=== PATIENT | female | born 1965 | race Caucasian/White ===

== ENCOUNTER → 2019-04-14 | Outpatient (CLI) | payer OTHER, SELFPAY ==
[2019-04-14 16:21] LABS: Body Fluid Mononuclear WBC % 15.5 %; Body Fluid Polynuclear WBC # 3.611 10^3/uL; Body Fluid Polynuclear WBC % 84.5 %
[2019-04-14 16:27] LABS: Absolute Lymphocyte Count 1.55 X10^3/uL (0.83-4.51); Absolute Neutrophil Count 6.2 X10^3/uL (2.0-7.7); Basophil# 0.03 X10^3/uL; Basophil% 0.3 % (0-1); Eosinophil# 0.05 X10^3/uL; Eosinophils% 0.6 % (0-5); Hematocrit 43.9 % (37-47); Hemoglobin 14.4 g/dL (12.0-15.0); Lymphocyte # 1.55 X10^3/ul (4.0); Lymphocyte % 17.1 % (19-41); Mean Corp Hgb Conc 32.8 g/dL (32-36); Mean Corpuscular Hgb 31.1 pg (27.0-32.0); Mean Corpuscular Volume 94.8 fL (81-99); Monocyte# 1.23 X10^3/uL; Monocyte% 13.6 % (0-10); NRBC Flagged by Analyzer 0 % (0-5); Neutrophil # 6.16 X10^3/uL (2.7-7.7); Neutrophil % 68.1 % (47-70); Platelet Count 260 K/mm3 (150-450); RBC Distribution Width SD 44.9 fl (35.1-43.9); Red Blood Count 4.63 M/mm3 (4.2-5.4); White Blood Count 9.1 K/mm3 (4.4-11.0)
[2019-04-14 16:35] LABS: Erythrocyte Sedimentation Rate 22 mm/hr (0-30)
[2019-04-14 16:53] LABS: Red Cell Count/Body Fluid 0.003 10^6/ul
[2019-04-14 17:42] LABS: Auto B Fluid Analyzer BKGD Ct COUNTS W/IN LIMITS (W/IN LIMITS)
[2019-04-14 17:43] LABS: Appearance/Body Fluid CLOUDY; Body Fluid QC Type(s) BF4Q; Color/Body Fluid YELLOW; Source- Body Fluid OTHER
[2019-04-14 17:49] LABS: Lymphocytes 2 %; Monocytes 16 %; Neutrophil (Segs) 82 %
[2019-04-17 13:42] LABS: Pathologist Comment/Body Fluid Reviewed
== END | disposition home or self-care (01) ==
LOC: LAB 15:21
PROVIDERS: PCP Family Medicine; Referring Provider Physician Assistant; Visit Provider Physician Assistant
DX: M17.12 Unilateral primary osteoarthritis, left knee (principal)
CPT/HCPCS: 36415; 85025; 85652; 86140; 87015; 87070; 87075; 87101; 87116; 87205; 87206; 89050

== ENCOUNTER → 2019-05-04 15:00 | Outpatient (CLI) | payer OTHER, SELFPAY ==
[2019-05-04 14:45] VITALS: BP 142/82; PULSE 61; RESP 17; TEMP 36.8; O2SAT 98; BMI 31.0
--- NOTE | 2019-05-04 15:09 | SDCEKG_ITS ---
Test Reason : Blood Pressure : / mmHG Vent. Rate : 057 BPM Atrial Rate : 057 BPM P-R Int : 202 ms QRS Dur : 092 ms QT Int : 448 ms P-R-T Axes : 067 090 079 degrees QTc Int : 436 ms Sinus bradycardia Rightward axis Borderline ECG Confirmed by ADONAY TORRES, TAMRA ([id number]), proposal editor AMIRAH CAMACHO ([id number]) on 05/08/2019 8:38:47 AM Referred By: Dale William Confirmed By:GILLIAN URIAS MD
[2019-05-04 15:46] LABS: Absolute Lymphocyte Count 2.03 X10^3/uL (0.83-4.51); Basophil# 0.03 X10^3/uL; Basophil% 0.6 % (0-1); Eosinophil# 0.08 X10^3/uL; Eosinophils% 1.7 % (0-5); Hematocrit 43.8 % (37-47); Hemoglobin 14.2 g/dL (12.0-15.0); Lymphocyte # 2.03 X10^3/ul (4.0); Lymphocyte % 43.8 % (19-41); Mean Corp Hgb Conc 32.4 g/dL (32-36); Mean Corpuscular Hgb 30.5 pg (27.0-32.0); Mean Corpuscular Volume 94.2 fL (81-99); Mean Platelet Vol. 9.9 fl (6.2-12.0); Monocyte# 0.45 X10^3/uL; Monocyte% 9.7 % (0-10); NRBC Flagged by Analyzer 0 % (0-5); Neutrophil # 2.03 X10^3/uL (2.7-7.7); Platelet Count 253 K/mm3 (150-450); Red Blood Count 4.65 M/mm3 (4.2-5.4); White Blood Count 4.6 K/mm3 (4.4-11.0)
[2019-05-04 16:15] LABS: Anion Gap 4 (5-15); BUN 10 mg/dL (7-18); BUN/Creat Ratio 13.1 RATIO (10-20); Calcium,Total 9.3 mg/dL (8.5-10.1); Chloride 109 mmol/L (98-107); Creatinine, Serum 0.76 mg/dL (0.55-1.02); EST Glomerular Filtration Rate 84 mL/min (>60); Est Glom Filt Rate - Afr Amer 101 mL/min (>60); Estimated Creatinine Clearance 82.29 ml/min; Glucose 83 mg/dL (74-106); Potassium 3.8 mmol/L (3.5-5.1); Sodium Level 142 mmol/L (136-145); Thyroid Stim Hormone (TSH) 1.55 uIU/mL (0.358-3.74)
== END ==
PROVIDERS: Anesthesiology; PCP Family Medicine; Referring Provider Orthopaedic Surgery; Visit Provider Orthopaedic Surgery
DX: Z01.818 Encounter for other preprocedural examination (principal)
CPT/HCPCS: 80048; 84443; 85025; 87077; 87081; 93005

== ENCOUNTER → 2019-05-04 | Outpatient (CLI) | payer OTHER, SELFPAY ==
--- NOTE | 2019-05-04 15:39 | CT_ITS ---
CT of the left lower extremity without contrast INDICATION: Preop knee arthroplasty, make nv protocol. TECHNIQUE: Multiple thin section axial CT images of the left hip joint, left knee joint, left ankle joint were obtained and filmed in bone windows. Furthermore, multiple sagittal and coronal reconstructions were performed. FINDINGS: No abnormal soft tissue mass, lymphadenopathy, or fluid collection. No acute fracture or dislocation. No lytic or blastic lesions. Mild left hip arthrosis. Moderate left knee arthrosis but with florid osteophyte formation. 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 No tibiotalar joint arthrosis. 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 Mild left hip arthrosis. Electronically Signed: Bobby Gaines MD at 8:58 EST Tel , Service support , CT/Extremity Lower without Contra
== END | disposition home or self-care (01) ==
PROVIDERS: PCP Family Medicine; Referring Provider Orthopaedic Surgery; Visit Provider Orthopaedic Surgery
DX: M17.12 Unilateral primary osteoarthritis, left knee (principal); M21.162 Varus deformity, not elsewhere classified, left knee
CPT/HCPCS: 73700